=== PATIENT | female | born 1990 | race Caucasian/White ===

== ENCOUNTER 2018-01-05 16:21 | Emergency (ER) | payer OTHER ==
[~2018-01-05] VITALS: Ht 165.1 cm; Wt 65.3 kg
[2018-01-05 16:27] VITALS: BP 134/80
--- NOTE | 2018-01-05 16:30 | NUR ---
PT AMBULATES W/ STEADY GAIT TO CHAIR B AT THIS TIME.
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
--- NOTE | 2018-01-05 17:13 | NUR ---
SELENE STONER AT THE CHAIR SIDE NOW DOING SUTURE REMOVAL.
--- NOTE | 2018-01-05 17:25 | NUR ---
PT D/C BY HERBIE BAEZA.
== END 2018-01-05 17:25 | disposition home or self-care (01) ==
LOC: MED 16:21
DX: S01.21XD Laceration without foreign body of nose, subsequent encounter (principal); X58.XXXD Exposure to other specified factors, subsequent encounter
CPT/HCPCS: 99281

== ENCOUNTER 2018-12-05 22:54 | Emergency (ER) | payer OTHER ==
[~2018-12-05] VITALS: Ht 165.1 cm; Wt 61.7 kg
[2018-12-05 23:09] VITALS: BP 144/83
--- NOTE | 2018-12-05 23:50 | NUR ---
patient amb to bed 9
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
[2018-12-06] MEDS ORDERED: IBUPROFEN 800 MG TAB PO ONE (00:25)
--- NOTE | 2018-12-06 00:53 | NUR ---
taken to ct in wheelchair by [employer] vice president
--- NOTE | 2018-12-06 00:54 | NUR ---
Patient taken to CT scan via wheelchair by tech.
[2018-12-06 02:14] VITALS: BP 144/83
--- NOTE | 2018-12-06 02:15 | NUR ---
Patient discharged with v/s stable. Written and verbal after care instructions given and explained. Patient alert, oriented and verbalized understanding of instructions. Ambulatory with steady gait. All questions addressed prior to discharge. ID band removed. Patient advised to follow up with PMD. Rx of MOTRIN, AZITHROMYCIN given. Patient educated on indication of medication including possible reaction and side effects. Opportunity to ask questions provided and answered.
== END 2018-12-06 02:15 | disposition home or self-care (01) ==
LOC: MED 22:54
DX: S02.2XXA Fracture of nasal bones, initial encounter for closed fracture (principal); S00.83XA Contusion of other part of head, initial encounter; S00.81XA Abrasion of other part of head, initial encounter; Y04.0XXA Assault by unarmed brawl or fight, initial encounter; Y93.89 Activity, other specified; Y92.89 Other specified places as the place of occurrence of the external cause; Y99.8 Other external cause status
CPT/HCPCS: 70450; 70486; 72125; 90471; 90715; 99284